=== PATIENT | female | born 1945 | race Two or more races ===

== ENCOUNTER 2017-10-26 07:26 | Day surgery (SDC) | payer OTHER ==
[2017-10-25 18:51] VITALS: BMI 28.7
[2017-10-26] MEDS: TROPICAMIDE 1% OPHTH SOLN 15 ML BOTTLE ONE ×2 (07:30→07:35)
[2017-10-26] MEDS: FLURBIPROFEN 0.03% OPHTH SOLN 2.5 ML BOTTLE OP SCH ×2 (07:30→07:35)
[2017-10-26] MEDS: PHENYLEPHRINE 2.5% OPHTH SOLN 15 ML BOTTLE OP SCH ×2 (07:30→07:35)
[2017-10-26] MEDS: CYCLOPENTOLATE HCL 1% OPHTH SOLN 2 ML BOTTLE OP SCH ×2 (07:30→07:35)
[2017-10-26] MEDS: CIPROFLOXACIN HCL 0.3% OPHTH 2.5ML BOTTLE OP SCH ×2 (07:30→07:35)
[2017-10-26] MEDS ORDERED: ACETAMINOPHEN 325 MG TABLET (FP) PO PRN (07:41)
[2017-10-26] MEDS ORDERED: TROPICAMIDE 1% OPHTH SOLN 15 ML BOTTLE OP SCH (07:45)
[2017-10-26] MEDS ORDERED: CIPROFLOXACIN 0.3% EYE DROPS 5 ML BOTTLE ONE (08:13)
[2017-10-26] MEDS ORDERED: FLURBIPROFEN 0.03% OPHTH SOLN 2.5 ML BOTTLE ONE (08:13)
[2017-10-26] MEDS ORDERED: CYCLOPENTOLATE HCL 1% OPHTH SOLN 2 ML BOTTLE ONE (08:14)
[2017-10-26] MEDS ORDERED: PHENYLEPHRINE 2.5% OPHTH SOLN 15 ML BOTTLE ONE (08:14)
[2017-10-26] MEDS ORDERED: MIDAZOLAM HCL 2 MG/2 ML SINGLE DOSE VIAL ONE (08:32)
[2017-10-26] MEDS ORDERED: CHONDROITIN SU A/HYALUR SOD 1 KIT ONE (08:39)
[2017-10-26] MEDS ORDERED: TETRACAINE 0.5% OPHTH SOLN 2 ML BOTTLE ONE (08:41)
[2017-10-26] MEDS ORDERED: EPINEPHrine/PF 1 MG/1 ML (1:1,000) AMPULE ONE (08:41)
[2017-10-26] MEDS ORDERED: LIDOCAINE HCL/PF 1% SDV 5ML VIAL ONE (08:41)
[2017-10-26] MEDS ORDERED: TETRACAINE 0.5% OPHTH SOLN 2 ML BOTTLE TP ONE (09:00)
[2017-10-26] MEDS ORDERED: LIDOCAINE HCL 1% PRESERVATIVE FREE - 30ML VIAL IO ONE (09:14)
[2017-10-26] MEDS ORDERED: TRYPAN BLUE 0.5 ML DISP.SYRIN IO ONE (09:15)
[2017-10-26] MEDS ORDERED: CHONDROITIN SU A/HYALUR SOD 1 KIT IO ONE (09:16)
[2017-10-26] MEDS ORDERED: EPINEPHrine/PF 1 MG/1 ML (1:1,000) AMPULE SQ ONE (09:17)
[2017-10-26] MEDS ORDERED: KETAMINE HCL 200 MG/20 ML VIAL ONE (09:19)
[2017-10-26] MEDS ORDERED: ONDANSETRON 4 MG/2 ML VIAL IVPUSH PRN (09:57)
[2017-10-26] MEDS ORDERED: LACTATED RINGERS SOLUTION 1,000 ML IV SCH (10:00)
[2017-10-26] MEDS ORDERED: TRYPAN BLUE 0.5 ML DISP.SYRIN ONE (10:57)
--- NOTE | 2017-10-26 12:47 | SPEC ---
DATE OF OPERATION: 10/26/2017 OPERATION: Phacoemulsification of cataract with posterior chamber intraocular lens implantation, left eye, lens used SN60WF, 23.0 diopter, serial no. [id number]. PREOPERATIVE DIAGNOSIS: Cataract, left eye. POSTOPERATIVE DIAGNOSIS: Cataract, left eye. SURGEON: Khang Collazo M.D. ANESTHESIA: Topical/MAC. COMPLICATIONS: None. PROCEDURE: The patient was brought to the operating room and correctly identified along with the operative site and a correct intraocular lens torrez. The patient was then given a peribulbar block under sedation with 5 mL of a 1:1 mixture of 2% Lidocaine and 0.5% Bupivacaine. Two to 3 mL of the same mixture was given as a modified Van Lint block. The eye was then prepped and draped in the usual sterile fashion including 5% Betadine solution in the conjunctival sac and an eyelid drape. An eyelid speculum was then placed into the eye. A paracentesis port was created. Viscoelastic was injected to inflate the anterior chamber. A temporal clear corneal wound was created. A continuous circular capsulorrhexis was performed. The nucleus was then hydro-dissected and removed phacoemulsification via the [id number] approach. The remaining cortical material was irrigated and aspirated from the eye. Viscoelastic was injected to inflate the capsular bag. The lens was injected into the capsular bag. Viscoelastic was then irrigated and aspirated from the eye. The intraocular lens was noted to be well centered and covered by the anterior capsular border. All wounds were found to be watertight. Topical Vancomycin was given. The eye patch and shield were placed. The patient was discharged from the operating room in stable condition. Monique [id number]
[2017-10-26 15:39] VITALS: PULSE 84
[2017-10-26 15:41] VITALS: BP 117/78; TEMP 98
== END 2017-10-26 11:20 | disposition home or self-care (01) ==
LOC: JASU-SURG 07:26
PROVIDERS: ATTEND Ophthalmology
PROC: 08RK3JZ Replacement of Left Lens with Synthetic Substitute, Percutaneous Approach (ICD-10-PCS; principal; 2017-10-26 09:00)
DX: H26.9 Unspecified cataract (principal)
CPT/HCPCS: 82962

== ENCOUNTER 2017-11-09 08:03 | Day surgery (SDC) | payer OTHER ==
[2017-11-08 17:59] VITALS: BMI 28.7
[~2017-11-09 08:03] MED LIST: ACETAMINOPHEN 325 MG TABLET (FP) PO PRN; CHONDROITIN SU A/HYALUR SOD 1 KIT IO ONE; EPINEPHrine/PF 1 MG/1 ML (1:1,000) AMPULE SQ ONE; LIDOCAINE HCL 1% PRESERVATIVE FREE - 30ML VIAL IO ONE; TETRACAINE 0.5% OPHTH SOLN 2 ML BOTTLE TP ONE
[2017-11-09] MEDS ORDERED: OFLOXACIN 0.3% OPHTHALMIC SOLUTION 5 ML BOTTLE ONE (08:28)
[2017-11-09] MEDS ORDERED: FLURBIPROFEN 0.03% OPHTH SOLN 2.5 ML BOTTLE ONE (08:28)
[2017-11-09] MEDS ORDERED: CYCLOPENTOLATE HCL 1% OPHTH SOLN 2 ML BOTTLE ONE (08:28)
[2017-11-09] MEDS ORDERED: PHENYLEPHRINE 2.5% OPHTH SOLN 15 ML BOTTLE ONE (08:29)
[2017-11-09] MEDS ORDERED: TROPICAMIDE 1% OPHTH SOLN 15 ML BOTTLE ONE (08:29)
[2017-11-09] MEDS: PHENYLEPHRINE 2.5% OPHTH SOLN 15 ML BOTTLE OP SCH ×3 (08:39→09:23)
[2017-11-09] MEDS: OFLOXACIN 0.3% OPHTHALMIC SOLUTION 5 ML BOTTLE OP SCH ×3 (08:39→09:23)
[2017-11-09] MEDS: FLURBIPROFEN 0.03% OPHTH SOLN 2.5 ML BOTTLE OP SCH ×3 (08:39→09:23)
[2017-11-09] MEDS: TROPICAMIDE 1% OPHTH SOLN 15 ML BOTTLE OP SCH ×3 (08:39→09:23)
[2017-11-09] MEDS: CYCLOPENTOLATE HCL 1% OPHTH SOLN 2 ML BOTTLE OP SCH ×3 (08:39→09:23)
[2017-11-09 08:41] VITALS: TEMP 98
[2017-11-09] MEDS ORDERED: MIDAZOLAM HCL 2 MG/2 ML SINGLE DOSE VIAL ONE (10:14)
[2017-11-09] MEDS ORDERED: LIDOCAINE HCL/PF 2% SDV 5ML VIAL ONE (10:15)
[2017-11-09] MEDS ORDERED: EPINEPHrine/PF 1 MG/1 ML (1:1,000) AMPULE ONE (10:15)
[2017-11-09] MEDS ORDERED: BUPIVACAINE HCL/PF 0.75% 10 ML VIAL ONE (10:15)
[2017-11-09] MEDS ORDERED: LIDOCAINE HCL/PF 1% SDV 5ML VIAL ONE (10:15)
[2017-11-09] MEDS ORDERED: TETRACAINE 0.5% OPHTH SOLN 2 ML BOTTLE TP ONE (10:25)
[2017-11-09] MEDS ORDERED: BUPIVACAINE HCL/PF 0.75% 10 ML VIAL RB ONE (10:33)
[2017-11-09] MEDS ORDERED: LIDOCAINE HCL/PF 2% SDV 5ML VIAL PNB ONE ×2 (10:33→10:34)
[2017-11-09] MEDS ORDERED: BUPIVACAINE HCL/PF 0.75% 10 ML VIAL PNB ONE (10:34)
[2017-11-09] MEDS ORDERED: LIDOCAINE HCL 1% PRESERVATIVE FREE - 30ML VIAL IO ONE (10:39)
[2017-11-09] MEDS ORDERED: CHONDROITIN SU A/HYALUR SOD 1 KIT IO ONE (10:40)
[2017-11-09] MEDS ORDERED: EPINEPHrine/PF 1 MG/1 ML (1:1,000) AMPULE SQ ONE (10:45)
[2017-11-09] MEDS ORDERED: MANNITOL 25% 12.5 GM/50 ML VIAL IVPB ONE (10:57)
[2017-11-09] MEDS ORDERED: TRIAMCINOLONE ACET 40MG/1ML VIAL ONE (11:23)
[2017-11-09] MEDS ORDERED: TRIAMCINOLONE ACET 40MG/1ML VIAL IJ ONE (11:25)
[2017-11-09] MEDS ORDERED: CHONDROITIN SU A/HYALUR SOD 1 KIT ONE (11:39)
[2017-11-09 12:35] VITALS: BP 112/57; PULSE 90
--- NOTE | 2017-11-09 13:45 | SPEC ---
DATE OF OPERATION: DATE OF DICTATION: 11/09/2017 PREOPERATIVE DIAGNOSIS: Cataract, right eye. POSTOPERATIVE DIAGNOSIS: Cataract, right eye. ASSOCIATED DIAGNOSIS: Iris prolapse, right eye. PROCEDURE: Phacoemulsification of right cataract with iris hooks and posterior chamber intraocular lens implant, the lens used SN60WF, 22.5-diopter power, serial number [id number]. ANESTHESIA: Peribulbar/modified Lint/MAC. COMPLICATIONS: None. PROCEDURE: Patient was brought to the operating room and correctly identified along with the operative site as well as correct intraocular lens power. She was then given a peribulbar block under sedation with 5 mL of a 1:1 mixture of 2% lidocaine and 0.75% bupivacaine; 2 mL was given as a modified Lint eyelid block as well. The patient had been noted to strain and not follow instructions during her prior cataract surgery in the left eye. The patient was then prepped and draped in the usual sterile fashion including 5% Betadine solution in the conjunctival sac and an eyelid drape. An eyelid speculum was then placed into the right eye. A paracentesis port was created and intracameral lidocaine was given approximately 0.4 mL. Viscoelastic was injected to inflate the anterior chamber and a temporal clear corneal wound was created. A continuous circular capsulorrhexis was initiated and upon approximately 75% of completion the iris was noted to prolapse in the wound. The procedure was halted and an attempt was made to first decompress the anterior chamber by removing some of the viscoelastic and then trying to sweep the iris back inside the eye gently. This, however, did not prove successful, and there was some iris depigmentation noted. The patient was noted to have a elevated heart rate of over 100 beats per minute and medication was given to try to relax her as well as mannitol to attempt to decrease the positive vitreous pressure. The capsulorhexis was successfully completed by using the utrata forceps over the prolapsed iris, And then the decision then was made to use iris hooks to attempt to stabilize the iris prolapse. Four additional paracenteses ports were created and iris hooks were placed in an attempt to pull the iris back. A subincisional iris hook was not possible due to the iris prolapse. Viscoat was used to try to maintain the iris at least within the corneal wound. After the iris hooks were placed, the phaco probe was placed in the wound with irrigation to reposit the iris. The nucleus was then hydrodissected with BSS and removed with phacoemulsification via the [id number] approach. The remaining cortical material was irrigated and aspirated from the eye. Viscoelastic was injected to inflate the capsular bag and the lens injected into the capsular bag. The iris hooks were then removed and all the corneal wounds were then stromal hydrated. A single 10-0 nylon suture was placed in the temporal clear corneal wound and the superior paracentesis port was enlarged to allow bimanual irrigation and aspiration of the viscoelastic. The anterior chamber was not noted to be stable and an additional 10-0 nylon suture was placed in the superior paracentesis. The anterior chamber was again filled with BSS and then noted to be watertight. The intraocular lens was noted to be well centered and covered by the anterior capsular border. There was a temporal iris defect was noted. Topical vancomycin and Kenalog were given, the eye patched and shielded and the patient discharged from the operating room in stable condition. TIFFANIE POZO M.D. [id number] MTDD
== END 2017-11-09 13:04 | disposition home or self-care (01) ==
LOC: JASU-SURG 08:03
PROVIDERS: ATTEND Ophthalmology
PROC: 08RJ3JZ Replacement of Right Lens with Synthetic Substitute, Percutaneous Approach (ICD-10-PCS; principal; 2017-11-09 10:00)
DX: H26.9 Unspecified cataract (principal); H21.89 Other specified disorders of iris and ciliary body
CPT/HCPCS: 82962